=== PATIENT | female | born 1975 | race Caucasian/White ===

== ENCOUNTER 2020-03-22 16:52 | Emergency (ER) | payer OTHER, SELFPAY ==
[2020-03-22 17:05] VITALS: BP 138/80; PULSE 82; RESP 16; TEMP 36.9; O2SAT 100; BMI 27.3
--- NOTE | 2020-03-22 17:08 | DI.RAD.S_ITS ---
PROCEDURE: XR TOE LT MIN 2V INDICATIONS: injury TECHNIQUE: Three views of the left toe(s) acquired. COMPARISON: None. FINDINGS: Bones: There is a tiny avulsion fracture off the distal aspect of the 1st phalanx tuft. Normal bone alignment. No suspicious bony lesions. Soft tissues: No suspicious soft tissue densities. Soft tissue swelling of the 1st toe. IMPRESSION: Tiny 1st distal phalanx tuft avulsion fracture. Dictated by: Dorina Sneed M.D. on 03/22/2020 at 16:20 Approved by: Dorina Sneed M.D. on 03/22/2020 at 16:22
[2020-03-22 17:25] VITALS: PULSE 76; O2SAT 98
[2020-03-22 17:30] VITALS: PULSE 76; O2SAT 98
--- NOTE | 2020-03-22 17:31 | ED.LOWEXIN ---
HPI - Extremity Injury (Lower) <CICI Beck - Last Filed: 03/22/20 19:27> General Chief Complaint: Extremity Injury, Lower Stated Complaint: Lt toe injury Time Seen by Provider: 03/22/20 17:01 Mode of arrival: Ambulatory History of Present Illness HPI Narrative: 44yo male presents to the ED for for right big toe pain. Patient states she dropped a log on her toe and the back of her nail came out. She states there is pain with pressure to the area. She denies any other injury. Patient denies any foot pain, fevers, chills, nausea, vomiting, diarrhea, or any other concerns. She denies prior injury to her foot. Patient is unsure when her last Tdap was but believes it may be 7 in 10 years ago. Related Data Home Medications Medication Instructions Recorded Confirmed sertraline 100 mg tablet 100 mg PO DAILY 03/22/20 03/22/20 Previous Rx's Medication Instructions Recorded cephalexin 500 mg PO QID 7 Days #28 cap 03/22/20 Allergies Allergy/AdvReac Type Severity Reaction Status Date / Time No Known Drug Allergies Allergy Verified 03/22/20 16:37 Review of Systems <CICI Beck - Last Filed: 03/22/20 19:27> Review of Systems Narrative: REVIEW OF SYSTEMS: GENERAL: Denies fever or chills. HENT: No head trauma. RESPIRATORY: No cough. GASTROINTESTINAL: No nausea or vomiting. GENITOURINARY: No flank pain. MUSCULOSKELETAL: Complains of R toe pain with damage to the nail, see HPI. INTEGUMENTARY: No rash. NEURO: No numbness, tingling. PSYCH: No behavior or mood changes. Patient History <CICI Beck - Last Filed: 03/22/20 19:27> Medical History Toe injury (Acute) Social History Smoking Status: Never smoker Smoking Status: Never smoker alcohol intake frequency: 0-2 drinks per day Substance Use Type: does not use Exam <CICI Beck - Last Filed: 03/22/20 19:27> Initial Vital Signs Initial Vital Signs: Vital Signs Temperature 98.5 F 03/22/20 17:05 Pulse Rate 82 03/22/20 17:05 Respiratory Rate 16 03/22/20 17:05 Blood Pressure 138/80 03/22/20 17:05 Pulse Oximetry 100 03/22/20 17:05 PHYSICAL EXAMINATION: GENERAL: Well groomed, alert, and cooperative. Answers questions promptly and appropriately. Vital signs noted. HENT: Normocephalic, atraumatic. EYES: Symmetrical, sclera white, no periorbital swelling. CARDIOVASCULAR: Regular rate.. RESPIRATORY: Normal respiratory rate, trachea midline, airway patent. No stridor, nasal flaring or accessory muscle use. MUSCULOSKELETAL: Base of nail on left big toe completely from the toe, distal nail attached. Proximal nail was trimmed, wound was irrigated extensively with more than 300 mL of normal saline. Tenderness to palpation of tip of the toe, small amount of swelling no ecchymosis. Patient able to move toe, intact distal sensation. No tenderness palpation of foot. EXTREMITIES: CMS intact. No pedal edema. SKIN: Warm, dry, soft, appropriate color for ethnicity. No lesions, rashes, or wounds. NEURO: Alert and Oriented X 3. No sensory deficits. PSYCH: Appropriate affect and mood. <Kj Delgadillo MD - Last Filed: 03/26/20 07:04> Initial Vital Signs Initial Vital Signs: Vital Signs Temperature 98.5 F 03/22/20 17:05 Pulse Rate 82 03/22/20 17:05 Respiratory Rate 16 03/22/20 17:05 Blood Pressure 138/80 03/22/20 17:05 Pulse Oximetry 100 03/22/20 17:05 Course <CICI Beck - Last Filed: 03/22/20 19:27> Course Course Narrative: Wound was irrigated, patient was given a boot to wear. She was given the 1st dose of antibiotic in the emergency department. Patient tolerated procedure well, no anesthesia needed. Orders Ordered: Discontinued Medications Bacitracin (Bacitracin) 1 applic TOP NOW ONE Stop: 03/22/20 18:05 Last Admin: 03/22/20 18:25 Dose: 1 applic Documented by: LANG Cephalexin HCl (Keflex) 500 mg PO NOW ONE Stop: 03/22/20 18:05 Last Admin: 03/22/20 18:25 Dose: 500 mg Documented by: LANG Diphtheria/Tetanus/Acell Pertussis (Adacel) 0.5 ml IM .ONCE ONE Stop: 03/22/20 17:33 Last Admin: 03/22/20 17:35 Dose: 0.5 ml Documented by: LANG Vital Signs Vital signs: Vital Signs - 8 hr 03/22/20 17:05 03/22/20 17:25 03/22/20 17:30 Temperature 98.5 F Pulse Rate 82 76 76 Respiratory Rate 16 Blood Pressure 138/80 Pulse Oximetry 100 98 98 03/22/20 18:00 03/22/20 18:12 03/22/20 18:13 Temperature Pulse Rate 68 72 Respiratory Rate Blood Pressure 131/82 Pulse Oximetry 97 98 <Kj Delgadillo MD - Last Filed: 03/26/20 07:04> Orders Ordered: Discontinued Medications Bacitracin (Bacitracin) 1 applic TOP NOW ONE Stop: 03/22/20 18:05 Last Admin: 03/22/20 18:25 Dose: 1 applic Documented by: LANG Cephalexin HCl (Keflex) 500 mg PO NOW ONE Stop: 03/22/20 18:05 Last Admin: 03/22/20 18:25 Dose: 500 mg Documented by: LANG Diphtheria/Tetanus/Acell Pertussis (Adacel) 0.5 ml IM .ONCE ONE Stop: 03/22/20 17:33 Last Admin: 03/22/20 17:35 Dose: 0.5 ml Documented by: LANG Vital Signs Vital signs: Vital Signs - 8 hr 03/22/20 17:05 03/22/20 17:25 03/22/20 17:30 Temperature 98.5 F Pulse Rate 82 76 76 Respiratory Rate 16 Blood Pressure 138/80 Pulse Oximetry 100 98 98 03/22/20 18:00 03/22/20 18:12 03/22/20 18:13 Temperature Pulse Rate 68 72 Respiratory Rate Blood Pressure 131/82 Pulse Oximetry 97 98 MDM - Extremity Injury (Lower) <CICI Beck - Last Filed: 03/22/20 19:27> Medical Records Attestation: I reviewed the patient's medical records. Lab Data Attestation: I reviewed the patient's lab results. Imaging Data Extremity x-ray #1: Radiologist's Impression: [address] [address] XRay Report Signed Patient: Kathryn Cha [facility]#: [id number] : 1975Acct:[id number] Age/Sex: 44 / FDate of Service: 03/22/20 Loc: ED Accession Number: [id number] Procedure: XR toe LT min 2V Ordering Provider: Lois Jack PROCEDURE: XR TOE LT MIN 2V INDICATIONS: injury TECHNIQUE: Three views of the left toe(s) acquired. COMPARISON: None. FINDINGS: Bones: There is a tiny avulsion fracture off the distal aspect of the 1st phalanx tuft. Normal bone alignment. No suspicious bony lesions. Soft tissues: No suspicious soft tissue densities. Soft tissue swelling of the 1st toe. IMPRESSION: Tiny 1st distal phalanx tuft avulsion fracture. Dictated by: Dorina Sneed M.D. on 03/22/2020 at 16:20 Approved by: Dorina Sneed M.D. on 03/22/2020 at 16:22 [facility] Narrative Medical decision making narrative: 44-year-old female presents emergency department for left toe injury. Base of nail clearly from toe, nail was trimmed. Wound was irrigated extensively. X-ray shows to tuft fracture. Patient was started on antibiotics due to open wound above fracture. Boot was given for support of toe. She was encouraged to follow up with PCP. Return precautions given for new or worsening symptoms. Patient agreed to plan of care verbalized understanding. Discharge Plan Departure Patient Disposition: Home Clinical Impression: Injury of nail Fracture of toe Qualifiers: Encounter type: initial encounter Toe: great toe Fracture type: open Phalanx: distal Fracture alignment: nondisplaced Laterality: right Qualified Code(s): S92.424B - Nondisplaced fracture of distal phalanx of right great toe, initial encounter for open fracture Discharge Date/Time: 03/22/20 18:28 Instructions: Toe Fracture Activity Restrictions/Additional Instructions: Thank you for entrusting me with your care today. As discussed, you have a fracture of the tip of your toe. I have given you an orthopedic shoe to wear, this will help support the wound severe toe decreased pain. I have trimmed the nail, the rest of the nail will fall off in time. There is a blood clot under nail, this may turn into a scab and eventually fall off. Please keep the dressing in place for the next 24 hours, after that you may remove the dressing. Wash the area gently with soap and water. Apply bacitracin before applying an additional dressing to prevent the dressing from sticking to the toe. Do not soak your toe and any dirty water such as lakes or in the ocean. No foreign bodies were found in your wound today. While there is low-risk for infection at this time, retained foreign bodies and infection are always possible with any cut or break in the skin. Please monitor the wound closely and be re-evaluated immediately if you develop any signs of infection such as pus, increasing redness, increasing pain, fevers, or any other concerns. I prescribed you antibiotics, please take these accordingly. Follow-up with your primary care provider in the next 1-2 weeks for further evaluation. Return emergency department for any new or worsening symptoms such as fevers, severe pain, syncope, chest pain, or any other concerns. Prescriptions: New cephalexin 500 mg capsule 500 mg PO QID 7 Days Qty: 28 RF: 0 No Action sertraline [Zoloft] 100 mg tablet 100 mg PO DAILY RF: 0
[2020-03-22] MEDS: TET,DIPH,PERTUSS(ACELL),VAC/PF 0.5 ML SYRINGE IM (17:35)
[2020-03-22 18:00] VITALS: PULSE 68; O2SAT 97
[2020-03-22 18:12] VITALS: PULSE 72; O2SAT 98
[2020-03-22 18:13] VITALS: BP 131/82
[2020-03-22] MEDS: cephALEXin 250 MG CAPSULE 500 MG PO (18:25)
[2020-03-22] MEDS: BACITRACIN OINT 0.9 GM PCKT 1 APPLIC TOP (18:25)
== END 2020-03-22 18:28 | disposition home or self-care (01) ==
PROVIDERS: Emergency Provider Nurse Practitioner
DX: S92.424B Nondisplaced fracture of distal phalanx of right great toe, initial encounter for open fracture (principal); W22.8XXA Striking against or struck by other objects, initial encounter; Z23 Encounter for immunization
CPT/HCPCS: 73660; 90471; 99283; 99284; 90715